=== PATIENT | female | born 1990 | race Caucasian/White ===

== ENCOUNTER 2020-01-16 00:04 | Outpatient (CLI) | payer OTHER, SELFPAY ==
[2020-01-16 17:13] LABS: SARS-CoV-2 RNA PCR Negative
== END 2020-01-16 00:05 | disposition home or self-care (01) ==
LOC: ANHCOVIDDT 00:04
PROVIDERS: PCP Family Medicine; Visit Provider Surgery
DX: Z01.812 Encounter for preprocedural laboratory examination (principal); Z11.59 Encounter for screening for other viral diseases
CPT/HCPCS: 87635; C9803; U0003

== ENCOUNTER 2020-01-18 00:01 | Day surgery (SDC) | payer OTHER, SELFPAY ==
[2019-10-07 10:22] VITALS: BMI 21.7
[2020-01-04 15:05] VITALS: BMI 21.7
--- NOTE | 2020-01-16 16:43 | PM.SD ---
Same Day Admit/Disch: HPI History of Present Illness Chief complaint: Ventral Hernia Narrative: Mane Maya is a 30 year old female who has had a painful supraumbilical bulge in the midline for at least 10 months. She was seen in the office and found to have a primary ventral hernia above the umbilicus. This bulges painful sometimes she has to push on it to relieve the discomfort. If she overeats it is painful as well. She is taken to surgery now for repair. [facility] Past Medical History Medical History (Updated 01/18/20 @ 08:18 by Harsh Rodriguez MD) Anxiety Depression Umbilical hernia Ventral hernia Family History Family History Father Heart disease Mother No problems noted. Grandparent Family history of glaucoma Hypertension Diabetes mellitus Social History Social History Smoking status: Former smoker Tobacco type: cigarettes Smoking end date: 07/27/09 Alcohol intake: never Substance use: never Same Day Admit/Disch: Med Pre-admit Medications Home Medications Medication Instructions Recorded Confirmed Type norethindrone 1 mg-ethinyl 1 tablet PO DAILY 08/30/19 01/18/20 History estradiol 20 mcg (21)-iron 75 mg (7) tablet citalopram 40 mg tablet 40 mg PO DAILY #90 tablet 01/09/20 01/18/20 Rx hydrocodone-acetaminophen 1 - 2 tablet PO Q6H PRN #5 tablet 01/18/20 Rx ketorolac 10 mg PO Q6H 4 Days #16 tablet 01/18/20 Rx Exam Const: General: comfortable, no acute distress, alert and awake HENMT: Head: normocephalic and atraumatic Mouth: Yes Normal oral and palatal mucosa present Eyes: Conjunctivae: conjunctivae normal Pupils: Equal, round and reactive pupils present EOM: EOMs intact bilaterally Neck: Neck: normal visual inspection, no lymphadenopathy and nontender Resp: Effort & Inspection: normal respiratory effort Auscultation: clear to auscultation bilaterally Cardio: Rate: regular rate Rhythm: regular rhythm Heart sounds: no gallops, no murmurs and no rubs GI: Inspection: normal to inspection and non-distended GI Palp: Yes Soft to palpation, No Tenderness to palpation present (GI), No Hepatomegaly present, No Splenomegaly present and Yes Hernia present ( Ventral hernia noted above the umbilicus in the midline, nontender) Auscultation: normal bowel sounds Skin: Lesions: no lesions Rashes: no rashes Neuro: General: no focal motor deficits and CN's II-XI intact bilaterally Cranial nerves: Yes Equal, round and reactive pupils present, Yes Bilaterally intact EOM present, Yes facial symmetry and Yes Midline tongue present Speech: normal speech Motor exam (neuro): 5/5 motor strength present throughout and Motor abnormalities not present Extrem: General: no clubbing, cyanosis or edema and edema Psych: Affect: normal affect Thought process: Normal thought process present Insight: Good insight present (Psych) DS: Summary Time Spent with Patient Time attestation: Total time spent providing and/or coordinating discharge services: DS: Admitting Diagnosis Admitting Diagnosis Admitting Diagnosis: ventral hernia DS: Discharge Diagnosis Discharge Diagnosis (1) Ventral hernia: Code(s): K43.9 - Ventral hernia without obstruction or gangrene Status: Chronic Assessment and Plan: symptomatic primary ventral hernia. Plan to proceed with repair using underlay mesh as an outpatient. The procedure was discussed with the patient thoroughly. The usual recovery was discussed. All questions were answered. She understands and agrees to go ahead. Discharge Plan Discharge Patient Disposition: Home, Self-Care Discharge Instructions: 1. May shower the day after surgery over incision. 2. Call office for: -Wound increasingly painful or bleeding -Vomiting -Fever of greater than 101 degrees 3. Expect some blood on dressing or
[2020-01-18 07:35] VITALS: BP 125/85; PULSE 71; RESP 16; TEMP 36.4; O2SAT 100
[2020-01-18] MEDS: LACTATED RINGERS 1,000 ML 30 ML IV CONT (08:05)
--- NOTE | 2020-01-18 08:17 | WPDANESEPPF ---
Anes - Initial Pre Proc Eval Procedure: Operation Date: 01/18/20 09:30 Proposed Procedures p Open Periumbilical Ventral Hernia Repair - Khai Cole MD Date/Time: 01/18/20 08:17 Surgeon: Khai Cole MD Pre Op Diagnosis: Ventral Hernia Patient Data Age: 30 Gender: F Height: 1.55 m Weight: 50.6 kg Allergies Allergy/AdvReac Type Severity Reaction Status Date / Time No Known Allergies Allergy Verified 01/18/20 08:10 Home Medications Medication Instructions Recorded Confirmed Type norethindrone 1 mg-ethinyl 1 tablet PO DAILY 08/30/19 01/18/20 History estradiol 20 mcg (21)-iron 75 mg (7) tablet citalopram 40 mg tablet 40 mg PO DAILY #90 tablet 01/09/20 01/18/20 Rx Patient hx anesthesia problems: none Family hx anesthesia problems: none PMFSH Past Medical History Medical History (Updated 01/18/20 @ 08:18 by Harsh Rodriguez MD) Anxiety Depression Umbilical hernia Ventral hernia Family History Family History Father Heart disease Mother No problems noted. Grandparent Family history of glaucoma Hypertension Diabetes mellitus Social History Social History Smoking status: Former smoker Tobacco type: cigarettes Smoking end date: 07/27/09 Alcohol intake: never Substance use: never Anes - Eval Final PreProcedure Day of Procedure 01/18/20 08:17 Patient weight: normal Heart: regular rate and rhythm Lungs: clear to auscultation and normal air movement Airway: Mallampati scale class II Neurological: alert and oriented Last oral intake: >/= 8 hours ASA classification: II Emergent: no Anesthetic plan: proceed Anesthesia type and monitoring: general GIVS Informed Consent: The patient's anesthetic plan and its attendant risks and benefits were discussed with the patient/family/POA. Questions were solicited and answers provided to the satisfaction of the patient/family/POA.
--- NOTE | 2020-01-18 09:23 | WPDHPUPDATE1 ---
History and Physical Update Update Date/Time: 01/18/20 09:23 History and Physical has been reviewed, including an updated exam of the patient. There are NO changes in the patient's condition. Risks, benefits, and alternatives have been discussed and questions answered. Patient agrees to proceed with procedure.
--- NOTE | 2020-01-18 09:29 | P.OP_ITS ---
Procedure Note - Detailed Date of procedure: 01/18/20 Pre-op diagnosis: Ventral Hernia Supraumbilical ventral hernia Post-op diagnosis: same Procedure performed: Primary ventral hernia repair Description of procedure: Patient was taken to the operating room and IV sedation was administered. Prep and drape was carried out. The proposed incision transversely and above the umbilicus was marked on the skin. Local anesthetic was infiltrated into the skin and the deeper subcutaneous tissues. Incision was made and dissection was carried down through the skin and to the hernia sac. The sac was then dissected free from the umbilical skin and the surrounding subcutaneous tissues. It was dissected down to its neck. Additional local anesthetic was infiltrated into the neck and the fascia surrounding the neck of the hernia sac. The sac was then amputated at its neck. The hernia defect was very small, only 4 millimeters in width and 2 mm in length. I closed the hernia defect with [id number] mattress suture of 0 Ethibond. The repair looked quite satisfactory. I then infiltrated additional local all around the areas of the repair. The subcutaneous was closed with 3 0 Vicryl. Subcuticular interrupted 4 O Vicryl skin stitches were placed. The skin was then closed with running 4 0 Monocryl subcuticular suture. Wound was dressed with Exofin surgical adhesive. The patient was awakened and taken to recovery in good condition. Counts were correct x2. Anesthesia: MAC and local (0.5% Marcaine with Exparel) Surgeon: Khai Cole MD Chainstitch Seat Joiner: Yessica LEBLANC Estimated blood loss (mL): 5 Drains: No Packing: No Pathology: none sent Complications: None Condition: stable Disposition: same day Findings: 4 millimeter hernia defect, primary ventral hernia 5 cm above umbilicus
[2020-01-18] MEDS: ceFAZolin 2 GM/D5W 50 ML 2 GM/50 ML BAG IVPB (09:39)
--- NOTE | 2020-01-18 10:07 | SUR.OPER ---
Ebl=5ml
[2020-01-18 10:19] VITALS: BP 110/64; PULSE 74; RESP 16; O2SAT 94
[2020-01-18 10:45] VITALS: BP 120/81; PULSE 73; RESP 16; O2SAT 96
[2020-01-18 11:15] VITALS: BP 122/77; PULSE 70; RESP 16
[2020-01-18 11:33] VITALS: BP 132/95; PULSE 67; RESP 16
--- NOTE | 2020-01-18 15:39 | SUR.PHASEII ---
PT'S FAMILY MEMBER UPDATED UPON PT'S ARRIVAL TO OP AREA.
== END 2020-01-18 11:45 | disposition home or self-care (01) ==
PROVIDERS: PCP Family Medicine; Visit Provider Surgery
PROC: 0WQF0ZZ Repair Abdominal Wall, Open Approach (ICD-10-PCS; CPT 49560; principal; 2020-01-18 09:30)
DX: K43.9 Ventral hernia without obstruction or gangrene (principal); F41.8 Other specified anxiety disorders; Z87.891 Personal history of nicotine dependence
CPT/HCPCS: 49560; C9290; J0690; J2250; J2704; J3010; J7120

== ENCOUNTER 2023-05-20 10:51 | Outpatient (CLI) | payer OTHER, SELFPAY ==
[2023-05-20 13:43] LABS: Basophils Percent Auto 0.6 % (0.2-1.2); Eosinophils Absolute Auto 0.1 K/mm3 (0-0.3); Eosinophils Percent Auto 1.4 % (0-4.4); Hematocrit 39.2 % (37.0-47.0); Hemoglobin 12.9 g/dL (12.0-15.0); Immature Granulocyte Absolute 0.01 K/mm3 (0.00-0.031); Immature Granulocyte Percent A 0.1 % (0-0.5); Lymphocytes Absolute Auto 2.73 K/mm3 (0.9-3.2); Lymphocytes Percent Auto 38.7 % (18.3-44.2); Mean Corpuscular HGB Conc 32.9 g/dl (32-36); Mean Corpuscular Hemoglobin 31.5 pg (26-34); Mean Corpuscular Volume 95.8 fl (80-100); Mean Platelet Volume 12.1 fl (7.4-10.4); Monocytes Absolute Auto 0.4 K/mm3 (0.1-0.6); Monocytes Percent Auto 5.2 % (2.6-8.5); Neutrophils Absolute Auto 3.8 K/mm3 (1.3-6.7); Platelet Count Result 192 k/mm3 (150-375); Red Blood Count 4.09 M/mm3 (4.2-5.4); Red Cell Distribution Width 12.2 % (11.5-14.5); White Blood Count 7.1 K/mm3 (4.5-10.0)
[2023-05-20 14:01] LABS: Alanine Aminotransferase 21 U/L (6-35); Albumin Level 4.4 g/dL (3.5-5.1); Alkaline Phosphatase 59 U/L (38-126); Anion Gap 8 mmol/L (8-16); Aspartate Amino Transferase 48 U/L (14-36); Bilirubin,Total 0.6 mg/dL (0.2-1.3); Blood Urea Nitrogen 11 mg/dL (7-17); Calcium 8.7 mg/dL (8.4-10.2); Carbon Dioxide 28 mmol/L (22-30); Chloride 101 mmol/L (98-107); Cholesterol 189 mg/dL (0-200); Estimated Glomerular Filt Rate > 60; Glucose 83 mg/dL (65-110); HDL Direct 45 mg/dL; Potassium 3.7 mmol/L (3.4-5.0); Sodium 137 mmol/L (137-145); Triglycerides 139 mg/dL (<150)
[2023-05-20 14:12] LABS: LDL Cholesterol Direct 119 mg/dL
[2023-05-20 14:20] LABS: Vitamin D 25 Hydroxy 40.6 ng/mL
[2023-05-20 14:24] LABS: Thyroid Stimulating Hormone 0.734 uIU/mL (0.465-4.680)
== END 2023-05-20 10:52 | disposition home or self-care (01) ==
LOC: ANHGOSHLAB 10:53
PROVIDERS: PCP Family Medicine; Visit Provider Family Medicine
DX: Z00.00 Encounter for general adult medical examination without abnormal findings (principal); Z79.899 Other long term (current) drug therapy; E78.5 Hyperlipidemia, unspecified; R61 Generalized hyperhidrosis; Z13.29 Encounter for screening for other suspected endocrine disorder; E55.9 Vitamin D deficiency, unspecified; E53.8 Deficiency of other specified B group vitamins
CPT/HCPCS: 36415; 80053; 80061; 82306; 82607; 84443; 85025

== ENCOUNTER 2023-07-01 12:34 | Outpatient (CLI) | payer OTHER, SELFPAY ==
[2023-07-01 19:32] LABS: Alanine Aminotransferase 14 U/L (6-35); Albumin Level 4.2 g/dL (3.5-5.1); Alkaline Phosphatase 61 U/L (38-126); Anion Gap 8 mmol/L (8-16); Aspartate Amino Transferase 39 U/L (14-36); Bilirubin,Total 0.5 mg/dL (0.2-1.3); Blood Urea Nitrogen 15 mg/dL (7-17); Calcium 8.9 mg/dL (8.4-10.2); Carbon Dioxide 28 mmol/L (22-30); Chloride 101 mmol/L (98-107); Estimated Glomerular Filt Rate > 60; Glucose 77 mg/dL (65-110); Potassium 3.9 mmol/L (3.4-5.0); Sodium 137 mmol/L (137-145)
== END 2023-07-01 12:35 | disposition home or self-care (01) ==
LOC: ANHGOSHLAB 12:36
PROVIDERS: PCP Family Medicine; Visit Provider Family Medicine
DX: R74.01 Elevation of levels of liver transaminase levels (principal)
CPT/HCPCS: 36415; 80053

== ENCOUNTER 2024-06-21 09:08 | Outpatient (CLI) | payer OTHER, SELFPAY ==
[2024-06-21 12:04] LABS: Basophils Percent Auto 0.6 % (0.2-1.2); Eosinophils Absolute Auto 0.2 K/mm3 (0-0.3); Eosinophils Percent Auto 3.1 % (0-4.4); Hematocrit 39.3 % (37.0-47.0); Hemoglobin 12.8 g/dL (12.0-15.0); Immature Granulocyte Absolute 0.01 K/mm3 (0.00-0.031); Immature Granulocyte Percent A 0.2 % (0-0.5); Lymphocytes Absolute Auto 2.23 K/mm3 (0.9-3.2); Mean Corpuscular HGB Conc 32.6 g/dl (32-36); Mean Corpuscular Hemoglobin 31.2 pg (26-34); Mean Corpuscular Volume 95.9 fl (80-100); Mean Platelet Volume 11.9 fl (7.4-10.4); Monocytes Absolute Auto 0.4 K/mm3 (0.1-0.6); Monocytes Percent Auto 6.3 % (2.6-8.5); Neutrophils Absolute Auto 3.3 K/mm3 (1.3-6.7); Neutrophils Percent Auto 53.8 % (45.5-73.1); Platelet Count Result 225 k/mm3 (150-375); Red Cell Distribution Width 12.9 % (11.5-14.5); White Blood Count 6.2 K/mm3 (4.5-10.0)
[2024-06-21 12:20] LABS: Alanine Aminotransferase 20 U/L (6-35); Albumin Level 4.3 g/dL (3.5-5.1); Alkaline Phosphatase 65 U/L (38-126); Anion Gap 7 mmol/L (4-12); Aspartate Amino Transferase 50 U/L (14-36); Bilirubin,Total 0.5 mg/dL (0.2-1.3); Blood Urea Nitrogen 8 mg/dL (7-17); Calcium 8.5 mg/dL (8.4-10.2); Carbon Dioxide 29 mmol/L (22-30); Chloride 102 mmol/L (98-107); Cholesterol 243 mg/dL (0-200); Estimated Glomerular Filt Rate > 60; Glucose 87 mg/dL (65-110); HDL Direct 67 mg/dL; Potassium 3.7 mmol/L (3.4-5.0); Sodium 138 mmol/L (137-145); Triglycerides 98 mg/dL (<150)
[2024-06-21 12:25] LABS: Vitamin D 25 Hydroxy 32.7 ng/mL
[2024-06-21 12:32] LABS: LDL Cholesterol Direct 147 mg/dL
[2024-06-21 18:23] LABS: Hemoglobin A1C 5.4 % (<5.7)
== END 2024-06-21 09:09 | disposition home or self-care (01) ==
LOC: ANHGOSHLAB 09:09
PROVIDERS: PCP Family Medicine; Visit Provider Family Medicine
DX: Z00.00 Encounter for general adult medical examination without abnormal findings (principal); E78.5 Hyperlipidemia, unspecified; F41.8 Other specified anxiety disorders; R61 Generalized hyperhidrosis; R73.9 Hyperglycemia, unspecified; E53.8 Deficiency of other specified B group vitamins; E55.9 Vitamin D deficiency, unspecified
CPT/HCPCS: 36415; 80053; 80061; 82306; 82607; 83036; 84443; 85025

== ENCOUNTER 2025-07-12 09:26 | Outpatient (CLI) | payer BC, SELFPAY ==
[2025-07-12 19:44] LABS: Alanine Aminotransferase 15 U/L (6-35); Albumin Level 4.3 g/dL (3.5-5.1); Alkaline Phosphatase 65 U/L (38-126); Anion Gap 6 mmol/L (4-12); Aspartate Amino Transferase 29 U/L (14-36); Bilirubin,Total 0.5 mg/dL (0.2-1.3); Blood Urea Nitrogen 11 mg/dL (7-17); Calcium 8.8 mg/dL (8.4-10.2); Carbon Dioxide 28 mmol/L (22-30); Chloride 103 mmol/L (98-107); Cholesterol 264 mg/dL (0-200); Estimated Glomerular Filt Rate > 60; Glucose 78 mg/dL (65-110); HDL Direct 62 mg/dL; Potassium 3.9 mmol/L (3.4-5.0); Sodium 137 mmol/L (137-145); Total Protein 7.6 g/dL (6.3-8.2); Triglycerides 143 mg/dL (<150)
[2025-07-12 19:45] LABS: Hematocrit 39.9 % (37.0-47.0); Hemoglobin 12.9 g/dL (12.0-15.0); Immature Granulocyte Percent A 0.3 % (0-0.5); Lymphocytes Absolute Auto 2.19 K/mm3 (0.9-3.2); Mean Corpuscular HGB Conc 32.3 g/dl (32-36); Mean Corpuscular Hemoglobin 31.3 pg (26-34); Mean Corpuscular Volume 96.8 fl (80-100); Nucleated Red Blood Cells Absolute Auto 0.000 K/mm3 (0.0-0.012); Nucleated Red Blood Cells Perc 0.0 % (0.0-0.2); Platelet Count Result 241 k/mm3 (150-375); Red Blood Count 4.12 M/mm3 (4.2-5.4); White Blood Count 7.3 K/mm3 (4.5-10.0)
[2025-07-12 20:20] LABS: Thyroid Stimulating Hormone Reflex 1.500 uIU/mL (0.465-4.68)
[2025-07-12 20:38] LABS: Vitamin B12 271.0 pg/mL (239-931)
[2025-07-12 21:20] LABS: Hemoglobin A1C 5.2 % (<5.7)
== END 2025-07-12 09:27 | disposition home or self-care (01) ==
LOC: ANHGOSHLAB 09:26
PROVIDERS: PCP Family Medicine; Visit Provider Family Medicine
DX: Z00.00 Encounter for general adult medical examination without abnormal findings (principal); E53.8 Deficiency of other specified B group vitamins; E55.9 Vitamin D deficiency, unspecified; R73.9 Hyperglycemia, unspecified; E78.5 Hyperlipidemia, unspecified; F41.8 Other specified anxiety disorders; G43.019 Migraine without aura, intractable, without status migrainosus; R74.01 Elevation of levels of liver transaminase levels
CPT/HCPCS: 36415; 80053; 80061; 82306; 82607; 83036; 84443; 85025